=== PATIENT | female | born 1990 | race Caucasian/White ===

== ENCOUNTER 2023-05-11 19:55 | Emergency (ER) | payer OTHER, SELFPAY ==
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
[2023-05-11 20:01] VITALS: BP 137/85; PULSE 95; RESP 18; TEMP 37.8; O2SAT 97; BMI 40.7
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
[2023-05-11 20:15] VITALS: BP 140/81; PULSE 88; RESP 16; TEMP 36.8; O2SAT 98
--- NOTE | 2023-05-11 20:18 | MHC.EDTECH ---
THIS PCT JUST ASSUIMED CARE OF PT ,VITALS SIGN TAKEN ,AND COVID SWAB COLLECTED AND SENT TO LAB .
[2023-05-11 21:00] LABS: COVID-19 Test Negative (Negative); IDNOW Serial# 08D9AD1C
[2023-05-11] MEDS: diazePAM 2 MG TABLET PO (21:32)
[2023-05-11] MEDS: oxyCODONE HCl Immed Release 5 MG TABLET PO (21:32)
[2023-05-11] MEDS: Ibuprofen 800 MG TABLET PO (21:32)
[2023-05-11 22:00] VITALS: BP 140/84; PULSE 64; RESP 18; TEMP 36.3; O2SAT 98
== END 2023-05-11 23:16 | disposition home or self-care (01) ==
PROVIDERS: Physician Assistant; Emergency Provider Emergency Medicine
DX: S13.4XXA Sprain of ligaments of cervical spine, initial encounter (principal); M54.2 Cervicalgia; R51.9 Headache, unspecified; R07.81 Pleurodynia; V43.52XA Car driver injured in collision with other type car in traffic accident, initial encounter; Y93.9 Activity, unspecified; Y92.410 Unspecified street and highway as the place of occurrence of the external cause; Y99.9 Unspecified external cause status; Z20.822 Contact with and (suspected) exposure to COVID-19; Z20.828 Contact with and (suspected) exposure to other viral communicable diseases
CPT/HCPCS: 70450; 71045; 72125; 87635; 99284